=== PATIENT | female | born 1955 | race Caucasian/White ===

== ENCOUNTER → 2020-10-23 08:18 | Outpatient (CLI) | payer MEDICARE, OTHER, SELFPAY ==
--- NOTE | 2020-10-23 08:28 | US_ITS ---
PROCEDURE: US ABDOMEN LIMITED CLINICAL INDICATION: VIRAL HEPATITIS C,CIRRHOSIS,ALTERED BOWEL FUNCTION COMPARISON: No exams were available for comparison FINDINGS: PANCREAS: Unremarkable. No obvious mass or abnormal fluid collection. No ductal dilatation LIVER: No focal liver lesions demonstrated. Homogeneous echogenicity. No intrahepatic biliary ductal dilatation evident. There is appropriate direction of blood flow within a non dilated portal vein RIGHT KIDNEY: Unremarkable. Normal size and echogenicity. No hydronephrosis GALLBLADDER: There is a gallstone present which measures approximately 3 cm. In the upper aspect of the gallbladder there is tumefactive sludge. No gallbladder wall thickening pericholecystic fluid or biliary dilatation is evident. Common bile duct is normal at 3 mm. IMPRESSION: Cholelithiasis with tumefactive sludge in the gallbladder Dictated by: Bladimir Schultz MD 10/23/2020 17:37 Bladimir Schultz MD in [place] 10/23/2020 17:37
[2020-10-23 09:48] LABS: Basophils # 0.1 K/mm3 (0-0.2); Basophils % 1.1 % (0.1-2.0); Eosinophils # 0.2 K/mm3 (0.0-0.4); Eosinophils % 3.8 % (0.1-12.0); Hematocrit 39.4 % (37.0-47.0); Hemoglobin 11.6 g/dL (12.2-16.2); Lymphocytes # 1.9 K/mm3 (0.7-4.5); Lymphocytes % 37.4 % (10-50); Mean Corpuscular HGB Conc 29.5 g/dL (31.8-35.4); Mean Corpuscular Hemoglobin 22.5 pg (27.0-31.2); Mean Platelet Volume 6.8 fl (7.4-10.4); Monocytes # 0.3 K/mm3 (0.1-1.0); Monocytes % 5.1 % (1.7-9.3); Neutrophils # 2.7 K/mm3 (1.8-7.8); Neutrophils % 52.6 % (37.0-80.0); Platelet Count 323 K/mm3 (142-424); Red Blood Count 5.18 M/mm3 (4.20-5.40); Red Cell Distribution Width 14.2 % (11.5-17.5); White Blood Count 5.1 K/mm3 (4.8-10.8)
[2020-10-23 09:58] LABS: Ammonia < 9 umol/L (9-30)
[2020-10-23 10:44] LABS: Chloride 102 mmol/L (98-107); Potassium 3.8 mmoL/L (3.5-5.1); Sodium 139 mmol/L (136-145)
[2020-10-23 10:46] LABS: Alanine Aminotransferase 76 U/L (12-78); Aspartate Amino Transferase 60 U/L (14-36); Blood Urea Nitrogen 15 mg/dl (7-17); Estimated Glomerular Filt Rate 124 ml/min (>60); GFR (African American) 150 ML/MIN (>60)
[2020-10-23 10:47] LABS: Albumin Level 4.2 g/dl (3.5-5.0); Albumin/Globulin Ratio 1.6 (1.1-1.8); Alkaline Phosphatase 40 U/L (38-126); Anion Gap 10.8 mEq/L (5-15); Bilirubin,Total 0.4 mg/dl (0.2-1.3); Calcium 9.7 mg/dl (8.4-10.2); Carbon Dioxide 30 mmol/L (22.0-30.0); Globulin 2.6 g/dL (1.3-3.2); Glucose 161 mg/dl (74-100); Iron 65 ug/dL (37-170); Total Protein,Serum 6.8 g/dl (6.3-8.2)
[2020-10-23 10:57] LABS: Total Iron Binding Capacity 477 ug/dL (265-497)
[2020-10-23 11:07] LABS: INR 1.01 (0.9-1.1); Prothrombin Time 11.2 seconds (9.4-11.8)
[2020-10-23 11:20] LABS: Ferritin 9.36 ng/ml (11.1-264)
[2020-10-24 10:38] LABS: Hep A Ab, IgM Negative (Negative); Hepatitis B Core Antibody IgM Negative (Negative); Hepatitis B Surface Antigen Negative (Negative)
[2020-10-24 22:04] LABS: AFP, Tumor Marker 4.8 ng/mL (0.0-8.3); Hepatitis C Antibody >11.0 s/co ratio (0.0-0.9)
[2020-10-25 08:17] LABS: ALT (SGPT) P5P 78 IU/L (0-40); Alpha 2-Macroglobulins, Qn 385 mg/dL (110-276); Apolipoprotein A-1 161 mg/dL (116-209); Bilirubin, Total 0.2 mg/dL (0.0-1.2); Fibrosis Score 0.43 (0.00-0.21); Fibrosis Stage F1-F2 (.); GGT 30 IU/L (0-60); Haptoglobin 60 mg/dL (37-355); Necroinflammat Activity Grade A1-A2 (.); Necroinflammat Activity Score 0.51 (0.00-0.17)
[2020-10-26 17:29] LABS: Hepatitis C Genotype 1a (.)
== END ==
PROVIDERS: PCP Family Medicine; Visit Provider Nurse Practitioner Family
DX: B19.20 Unspecified viral hepatitis C without hepatic coma (principal); K74.60 Unspecified cirrhosis of liver; R19.4 Change in bowel habit; Z12.11 Encounter for screening for malignant neoplasm of colon
CPT/HCPCS: 36415; 76705; 80053; 80074; 81596; 82105; 82140; 82728; 83540; 83550; 85025; 85610; 87522

== ENCOUNTER → 2020-12-05 17:13 | Outpatient (CLI) | payer MEDICARE, OTHER, SELFPAY ==
[2020-12-05 18:41] LABS: Coronavirus 19 IgG Antibody Negative (Negative); Coronavirus 19 IgM Antibody Negative (Negative)
== END ==
PROVIDERS: Visit Provider Internal Medicine Gastroenterology
DX: Z01.812 Encounter for preprocedural laboratory examination (principal)
CPT/HCPCS: 36415; 86328

== ENCOUNTER 2020-12-07 09:29 | Day surgery (SDC) | payer MEDICARE, OTHER, SELFPAY ==
[2020-11-26 14:19] VITALS: BMI 28.7
[2020-12-07] VITALS (7 sets, daily range): BP systolic 132–189; BP diastolic 58–91; PULSE 57–62; RESP 18; TEMP 36.2–36.6; O2SAT 96–98
[2020-12-07 10:18] LABS: POC Glucose,Bedside 201 (70-110)
--- NOTE | 2020-12-07 10:48 | HMH.ANESCL ---
[facility] Anesthesia Checklist - Structural Data Admitted From: Home Planned Operative Procedure/s: colonoscopy Consent for Planned Operative Procedure(s) Verified: Yes - Airway Assessment C-Spine Mobility Assessed: Yes TMJ Mobility Assessed: Yes Dentition: Poor Dentition - Neurological Assessment Level of Consciousness: Awake, Alert, Appropriate - Anesthesia Plan Anesthesia Risk discussed: Yes Anesthesia Plan: Verified ASA Class: III Anesthesia Type: MAC [facility] History I have reviewed the patient's past medical history: Yes Medical History: Reports:: Diabetes Mellitus Type 2 Denies:: Cancer, Diabetes Mellitus Type 1, Internal Pacemaker, MRSA, Seizures *Have you ever received a pneumonia vaccine?: Yes *Have you received a flu vaccine this season?: Yes Anesthesia experience/problems:: none Laterality Cases: Bilateral: Cataract Other Surgeries: No: Pacemaker Amputation: No Fractures: Yes - *Social History Last grade of school completed: Some college Smoking Status: Never smoker Alcohol Intake: current Alcohol Intake Frequency:: holidays/special occasions only Substance Use Type: denies use *Occupational Status:: employed Housing: house Household Members: none *Travel in the last 8 weeks: None Family Hx:: Unable to obtain
--- NOTE | 2020-12-07 11:04 | P.PCN_ITS ---
[facility] Procedure Note Procedure Note:: Colonoscopy Procedure Report: Colonoscopy Endoscopist: Pan Camara II, MD Referring physician: Eneida Cavazos DO Date of Procedure: December 07, 2020 Equipment: Olympus 180 variable stiffness pediatric colonoscope Sedation: MAC sedation Indication: Mrs. Lee is a 65-year-old female who is here for follow-up screening/surveillance colonoscopy. Her last colonoscopy in 2008 was normal. The patient has noted some change in her bowel habits over the last 3 to 6 months with some diarrhea and urgency that occurs once every 1 to 2 weeks. She does get some bloating and minimal gassiness. She has some occasional right upper quadrant and left upper quadrant discomfort. She reports no weight loss, rectal bleeding or family history of colon cancer. She does have hepatitis C with cirrhosis. She had initially been treated with pegylated interferon and ribavirin but this did result and autoimmune thyroiditis and hypothyroidism. She was seen to discuss newer therapies recently. Procedure: Prior to the procedure, a history and physical exam was performed, and patient's medications and allergies were reviewed. The risks, benefits and alternatives of the sedation and procedure were discussed with the patient. All questions were answered and informed consent was obtained. The patient was brought to the procedure room. Patient identification and proposed procedure were verified by the physician and the nurse. The patient was placed in a left lateral decubitus position and the scope was passed under direct vision. Throughout the procedure, the patient's blood pressure, pulse, and oxygen saturations were monitored continuously. The colonoscopy was accomplished without difficulty. The patient tolerated the procedure well. Findings: On digital rectal examination there was normal rectal tone. There were no external hemorrhoids. The colonoscope was introduced through the anal canal to the rectum and advanced to the cecum. The ileocecal valve and appendiceal orifice were identified. The scope was advanced a short distance into the ileum which appeared grossly normal. The scope was then withdrawn into the colon. The cecum, ascending, transverse, descending, sigmoid and rectum were grossly normal. There were no mucosal abnormalities identified. Upon retroflexion within the rectum there were very small grade 0?1 internal hemorrhoids with some small hypertrophied anal papilla.The preparation was excellent throughout with Jenkinjones Preparation Score of 9. The cecal time was 10 minutes. Impression: 1. Normal colonoscopy with intubation of the terminal ileum Plan: The patient will not require screening/surveillance colonoscopy again for 10 years by ACS guidelines. I would encourage probiotic and bulk fiber supplementation on a long-term daily maintenance basis.
== END 2020-12-07 12:16 | disposition home or self-care (01) ==
LOC: OUTP 09:31
PROVIDERS: PCP Family Medicine; Visit Provider Internal Medicine Gastroenterology
PROC: 0DJD8ZZ Inspection of Lower Intestinal Tract, Via Natural or Artificial Opening Endoscopic (ICD-10-PCS; CPT 45378; principal; 2020-12-07 10:30)
DX: Z12.11 Encounter for screening for malignant neoplasm of colon (principal); B19.20 Unspecified viral hepatitis C without hepatic coma; K74.60 Unspecified cirrhosis of liver; E11.9 Type 2 diabetes mellitus without complications; I10 Essential (primary) hypertension; Z79.82 Long term (current) use of aspirin; Z79.84 Long term (current) use of oral hypoglycemic drugs; Z79.899 Other long term (current) drug therapy
CPT/HCPCS: G0121; 82962

== ENCOUNTER → 2021-03-28 14:09 | Outpatient (CLI) | payer MEDICARE, OTHER, SELFPAY | PROVIDERS: Visit Provider Nurse Practitioner Family | DX: B19.20 Unspecified viral hepatitis C without hepatic coma (principal); K74.60 Unspecified cirrhosis of liver | CPT/HCPCS: 36415; 87522 ==

== ENCOUNTER → 2021-04-19 16:55 | Outpatient (CLI) | payer MEDICARE, OTHER, SELFPAY ==
[2021-04-19 17:29] LABS: Basophils # 0.1 K/mm3 (0-0.2); Eosinophils # 0.3 K/mm3 (0.0-0.4); Eosinophils % 3.3 % (0.1-12.0); Hemoglobin 11.8 g/dL (12.2-16.2)
[2021-04-19 17:50] LABS: Basophils % 0.9 % (0.1-2.0); Hematocrit 37.3 % (37.0-47.0); Lymphocytes # 3.2 K/mm3 (0.7-4.5); Lymphocytes % 40.9 % (10-50); Mean Corpuscular HGB Conc 31.7 g/dL (31.8-35.4); Mean Corpuscular Hemoglobin 22.6 pg (27.0-31.2); Mean Corpuscular Volume 71.3 fl (81-99); Mean Platelet Volume 7.3 fl (7.4-10.4); Monocytes # 0.4 K/mm3 (0.1-1.0); Neutrophils # 3.9 K/mm3 (1.8-7.8); Neutrophils % 49.9 % (37.0-80.0); Platelet Count 301 K/mm3 (142-424); Red Blood Count 5.22 M/mm3 (4.20-5.40); Red Cell Distribution Width 14.6 % (11.5-17.5); White Blood Count 7.7 K/mm3 (4.8-10.8)
[2021-04-19 18:21] LABS: Chloride 99 mmol/L (98-107)
[2021-04-19 18:22] LABS: Potassium 3.9 mmoL/L (3.5-5.1); Sodium 136 mmol/L (136-145)
[2021-04-19 18:24] LABS: Alanine Aminotransferase 76 U/L (12-78); Alkaline Phosphatase 49 U/L (38-126); Anion Gap 13.9 mEq/L (5-15); Aspartate Amino Transferase 62 U/L (14-36); Bilirubin,Total 0.4 mg/dl (0.2-1.3); Blood Urea Nitrogen 25 mg/dl (7-17); Carbon Dioxide 27 mmol/L (22.0-30.0); Estimated Glomerular Filt Rate 124 ml/min (>60); GFR (African American) 150 ML/MIN (>60)
[2021-04-19 18:25] LABS: Albumin Level 4.4 g/dl (3.5-5.0); Albumin/Globulin Ratio 1.8 (1.1-1.8); Calcium 9.6 mg/dl (8.4-10.2); Globulin 2.5 g/dL (1.3-3.2); Glucose 103 mg/dl (74-100); Total Protein,Serum 6.9 g/dl (6.3-8.2)
== END ==
PROVIDERS: Visit Provider Nurse Practitioner Family
DX: B19.20 Unspecified viral hepatitis C without hepatic coma (principal); K74.60 Unspecified cirrhosis of liver
CPT/HCPCS: 36415; 80053; 85025

== ENCOUNTER → 2021-05-11 10:23 | Outpatient (CLI) | payer MEDICARE, OTHER, SELFPAY ==
[2021-05-11 10:58] LABS: Basophils # 0.1 K/mm3 (0-0.2); Basophils % 1.1 % (0.1-2.0); Eosinophils # 0.3 K/mm3 (0.0-0.4); Hematocrit 38.4 % (37.0-47.0); Hemoglobin 12.4 g/dL (12.2-16.2); Lymphocytes # 2.5 K/mm3 (0.7-4.5); Mean Corpuscular HGB Conc 32.4 g/dL (31.8-35.4); Mean Corpuscular Hemoglobin 23.1 pg (27.0-31.2); Mean Corpuscular Volume 71.3 fl (81-99); Mean Platelet Volume 7.3 fl (7.4-10.4); Monocytes # 0.4 K/mm3 (0.1-1.0); Neutrophils # 4.7 K/mm3 (1.8-7.8); Platelet Count 317 K/mm3 (142-424); Red Blood Count 5.39 M/mm3 (4.20-5.40); Red Cell Distribution Width 14.4 % (11.5-17.5); White Blood Count 7.9 K/mm3 (4.8-10.8)
[2021-05-11 11:49] LABS: Chloride 101 mmol/L (98-107)
[2021-05-11 11:50] LABS: Sodium 136 mmol/L (136-145)
[2021-05-11 11:52] LABS: Alanine Aminotransferase 29 U/L (12-78); Alkaline Phosphatase 48 U/L (38-126); Aspartate Amino Transferase 31 U/L (14-36); Bilirubin,Total 0.4 mg/dl (0.2-1.3); Blood Urea Nitrogen 23 mg/dl (7-17); Carbon Dioxide 21 mmol/L (22.0-30.0); Estimated Glomerular Filt Rate 124 ml/min (>60); GFR (African American) 150 ML/MIN (>60)
[2021-05-11 11:53] LABS: Albumin Level 4.6 g/dl (3.5-5.0); Albumin/Globulin Ratio 1.8 (1.1-1.8); Calcium 9.3 mg/dl (8.4-10.2); Globulin 2.5 g/dL (1.3-3.2); Glucose 188 mg/dl (74-100); Total Protein,Serum 7.1 g/dl (6.3-8.2)
[2021-05-12 09:43] LABS: Hepatitis C Antibody >11.0 s/co ratio (0.0-0.9)
== END ==
PROVIDERS: Visit Provider Nurse Practitioner Family
DX: B19.20 Unspecified viral hepatitis C without hepatic coma (principal)
CPT/HCPCS: 80053; 85025; 87380; 87522

== ENCOUNTER → 2021-06-15 09:28 | Outpatient (CLI) | payer MEDICARE, OTHER, SELFPAY ==
[2021-06-15 10:31] LABS: Basophils # 0.1 K/mm3 (0-0.2); Basophils % 0.9 % (0.1-2.0); Eosinophils # 0.2 K/mm3 (0.0-0.4); Eosinophils % 3.4 % (0.1-12.0); Hematocrit 38.1 % (37.0-47.0); Hemoglobin 12.2 g/dL (12.2-16.2); Lymphocytes # 2.4 K/mm3 (0.7-4.5); Lymphocytes % 39.5 % (10-50); Mean Corpuscular HGB Conc 32.1 g/dL (31.8-35.4); Mean Corpuscular Hemoglobin 23.1 pg (27.0-31.2); Mean Corpuscular Volume 72.1 fl (81-99); Mean Platelet Volume 7.4 fl (7.4-10.4); Monocytes # 0.3 K/mm3 (0.1-1.0); Monocytes % 5.2 % (1.7-9.3); Neutrophils # 3.1 K/mm3 (1.8-7.8); Platelet Count 317 K/mm3 (142-424); Red Blood Count 5.29 M/mm3 (4.20-5.40); Red Cell Distribution Width 14.7 % (11.5-17.5)
[2021-06-15 11:26] LABS: Alanine Aminotransferase 27 U/L (12-78); Albumin Level 4.3 g/dl (3.5-5.0); Albumin/Globulin Ratio 1.7 (1.1-1.8); Alkaline Phosphatase 44 U/L (38-126); Anion Gap 13.2 mEq/L (5-15); Aspartate Amino Transferase 29 U/L (14-36); Bilirubin,Total 0.4 mg/dl (0.2-1.3); Blood Urea Nitrogen 21 mg/dl (7-17); Calcium 9.2 mg/dl (8.4-10.2); Carbon Dioxide 28 mmol/L (22.0-30.0); Chloride 101 mmol/L (98-107); Estimated Glomerular Filt Rate 124 ml/min (>60); GFR (African American) 150 ML/MIN (>60); Globulin 2.5 g/dL (1.3-3.2); Glucose 155 mg/dl (74-100); Potassium 4.2 mmoL/L (3.5-5.1); Sodium 138 mmol/L (136-145); Total Protein,Serum 6.8 g/dl (6.3-8.2)
== END ==
PROVIDERS: Visit Provider Nurse Practitioner Family
DX: B18.2 Chronic viral hepatitis C (principal); Z79.899 Other long term (current) drug therapy
CPT/HCPCS: 36415; 80053; 85025; 87522

== ENCOUNTER → 2021-09-14 08:38 | Outpatient (CLI) | payer MEDICARE, OTHER, SELFPAY ==
[2021-09-14 09:05] LABS: Basophils # 0.1 K/mm3 (0-0.2); Basophils % 1.5 % (0.1-2.0); Eosinophils # 0.2 K/mm3 (0.0-0.4); Eosinophils % 4.1 % (0.1-12.0); Hematocrit 40.3 % (37.0-47.0); Hemoglobin 12.3 g/dL (12.2-16.2); Lymphocytes % 35.7 % (10-50); Mean Corpuscular HGB Conc 30.6 g/dL (31.8-35.4); Mean Corpuscular Hemoglobin 23.8 pg (27.0-31.2); Mean Corpuscular Volume 77.5 fl (81-99); Monocytes # 0.3 K/mm3 (0.1-1.0); Monocytes % 6.1 % (1.7-9.3); Neutrophils # 2.9 K/mm3 (1.8-7.8); Neutrophils % 52.7 % (37.0-80.0); Platelet Count 382 K/mm3 (142-424); Red Blood Count 5.19 M/mm3 (4.20-5.40); Red Cell Distribution Width 14.8 % (11.5-17.5); White Blood Count 5.5 K/mm3 (4.8-10.8)
[2021-09-14 11:29] LABS: Alanine Aminotransferase 24 U/L (12-78); Albumin Level 4.2 g/dl (3.5-5.0); Albumin/Globulin Ratio 1.5 (1.1-1.8); Alkaline Phosphatase 40 U/L (38-126); Anion Gap 13.2 mEq/L (5-15); Aspartate Amino Transferase 34 U/L (14-36); Bilirubin,Total 0.2 mg/dl (0.2-1.3); Blood Urea Nitrogen 19 mg/dl (7-17); Calcium 9.2 mg/dl (8.4-10.2); Carbon Dioxide 27 mmol/L (22.0-30.0); Chloride 102 mmol/L (98-107); Estimated Glomerular Filt Rate 123 ml/min (>60); GFR (African American) 149 ML/MIN (>60); Globulin 2.8 g/dL (1.3-3.2); Glucose 183 mg/dl (74-100); Potassium 4.2 mmoL/L (3.5-5.1); Sodium 138 mmol/L (136-145)
== END ==
PROVIDERS: Visit Provider Nurse Practitioner Family
DX: B18.2 Chronic viral hepatitis C (principal); Z79.899 Other long term (current) drug therapy
CPT/HCPCS: 36415; 80053; 85025; 87522

== ENCOUNTER → 2021-09-26 08:21 | Outpatient (CLI) | payer MEDICARE, OTHER, SELFPAY | PROVIDERS: Visit Provider Nurse Practitioner Family | DX: B18.2 Chronic viral hepatitis C (principal); K74.60 Unspecified cirrhosis of liver | CPT/HCPCS: 36415; 87522 ==

== ENCOUNTER → 2021-12-11 09:21 | Outpatient (CLI) | payer MEDICARE, OTHER, SELFPAY | PROVIDERS: Visit Provider Nurse Practitioner | DX: Z20.822 Contact with and (suspected) exposure to COVID-19 (principal) | CPT/HCPCS: C9803; U0003; U0005 ==

== ENCOUNTER → 2022-01-17 15:39 | Outpatient (CLI) | payer MEDICARE, OTHER, SELFPAY ==
--- NOTE | 2022-01-17 15:44 | MM_ITS ---
PROCEDURE INFORMATION: Exam: MG Bilateral Screening 3D Mammography Exam date and time: 01/17/2022 3:44 PM Age: 66 years old Clinical indication: Encounter for screening mammogram for malignant neoplasm of breast; Additional info: Annual screening TECHNIQUE: Imaging protocol: Bilateral Screening tomosynthesis and 2D mammography including computer-aided detection (CAD) when performed. COMPARISON: 1. MG DMSB DIG MAMM-SCREEN DAVDI 08/03/2015 10:38 AM 2. MG DMSB DIGITAL MAMM-SCREEN BILATERAL 01/07/2011 8:45 AM 3. MG Prior Reports 03/01/2009 9:30 AM FINDINGS: MAMMOGRAPHY: Breast composition: There are scattered areas of fibroglandular density. Mass: No suspicious masses. Architectural distortion: No suspicious distortion. Calcifications: No suspicious calcifications. Asymmetric density: None. Skin thickening: None. Axillary adenopathy: None. IMPRESSION: No mammographic evidence of malignancy. Annual screening is recommended unless otherwise clinically indicated. ASSESSMENT: BI-RADS Category 1: Negative
== END ==
PROVIDERS: PCP Family Medicine; Visit Provider Family Medicine
DX: Z12.31 Encounter for screening mammogram for malignant neoplasm of breast (principal)
CPT/HCPCS: 77063; 77067

== ENCOUNTER → 2022-03-05 07:53 | Outpatient (CLI) | payer MEDICARE, OTHER, SELFPAY ==
--- NOTE | 2022-03-05 07:57 | US_ITS ---
FINAL REPORT CLINICAL HISTORY: HEP C,CIRRHOSIS COMPARISON: October 23, 2020 FINDINGS: Sonographic images of the right upper quadrant were obtained. The pancreas is partially obscured.The liver has an unremarkable appearance. There is a large stone in the gallbladder. There is soft tissue within the gallbladder favored to represent a large amount of sludge. There is no evidence of biliary ductal dilatation.The common duct measures 4mm. Limited images of the right kidney are unremarkable. IMPRESSION: Gallstone and a large amount of sludge within the gallbladder. Reviewed, Interpreted and Dictated by Abrahan Kenney III, MD Transcribed by Solis Dhaliwal Authenticated by Abrahan Kenney III, MD on 03/05/2022 10:15:09 AM [facility]
[2022-03-05 08:54] LABS: Ammonia < 9 umol/L (9-30)
[2022-03-05 09:05] LABS: Basophils # 0.1 K/mm3 (0-0.2); Basophils % 0.9 % (0.1-2.0); Eosinophils # 0.1 K/mm3 (0.0-0.4); Eosinophils % 2.6 % (0.1-12.0); Hematocrit 36.4 % (37.0-47.0); Hemoglobin 11.4 g/dL (12.2-16.2); Lymphocytes % 19.3 % (10-50); Mean Corpuscular HGB Conc 31.4 g/dL (31.8-35.4); Mean Corpuscular Hemoglobin 23.6 pg (27.0-31.2); Mean Corpuscular Volume 75.4 fl (81-99); Mean Platelet Volume 7.6 fl (7.4-10.4); Monocytes # 0.3 K/mm3 (0.1-1.0); Monocytes % 6.3 % (1.7-9.3); Neutrophils # 3.8 K/mm3 (1.8-7.8); Neutrophils % 70.9 % (37.0-80.0); Platelet Count 304 K/mm3 (142-424); Red Blood Count 4.83 M/mm3 (4.20-5.40); Red Cell Distribution Width 15.6 % (11.5-17.5); White Blood Count 5.3 K/mm3 (4.8-10.8)
[2022-03-05 09:11] LABS: INR 1.04 (0.9-1.1); Prothrombin Time 11.7 seconds (10.1-12.5)
[2022-03-05 09:17] LABS: Chloride 102 mmol/L (98-107); Potassium 3.6 mmoL/L (3.5-5.1); Sodium 139 mmol/L (136-145)
[2022-03-05 09:20] LABS: Alanine Aminotransferase 29 U/L (12-78); Albumin Level 4.1 g/dl (3.5-5.0); Albumin/Globulin Ratio 1.6 (1.1-1.8); Alkaline Phosphatase 46 U/L (38-126); Anion Gap 11.6 mEq/L (5-15); Aspartate Amino Transferase 34 U/L (14-36); Bilirubin,Total 0.4 mg/dl (0.2-1.3); Blood Urea Nitrogen 18 mg/dl (7-17); Calcium 8.2 mg/dl (8.4-10.2); Carbon Dioxide 29 mmol/L (22.0-30.0); Estimated Glomerular Filt Rate 123 ml/min (>60); GFR (African American) 149 ML/MIN (>60); Globulin 2.5 g/dL (1.3-3.2); Glucose 143 mg/dl (74-100); Iron 61 ug/dL (37-170); Total Protein,Serum 6.6 g/dl (6.3-8.2)
[2022-03-05 13:46] LABS: Total Iron Binding Capacity 448 ug/dL (265-497)
[2022-03-05 14:12] LABS: Ferritin 6.86 ng/ml (11.1-264)
[2022-03-06 18:10] LABS: AFP, Tumor Marker 2.3 ng/mL (0.0-9.2)
== END ==
PROVIDERS: PCP Family Medicine; Visit Provider Nurse Practitioner Family
DX: B18.2 Chronic viral hepatitis C (principal); K74.60 Unspecified cirrhosis of liver
CPT/HCPCS: 36415; 76705; 80053; 82105; 82140; 82728; 83540; 83550; 85025; 85610; 87522

== ENCOUNTER → 2022-04-01 10:55 | Outpatient (CLI) | payer MEDICARE, OTHER, SELFPAY | PROVIDERS: Visit Provider Nurse Practitioner Family | DX: Z01.812 Encounter for preprocedural laboratory examination (principal); Z11.52 Encounter for screening for COVID-19 | CPT/HCPCS: C9803; U0003; U0005 ==

== ENCOUNTER → 2022-09-16 07:51 | Outpatient (CLI) | payer MEDICARE, OTHER, SELFPAY ==
--- NOTE | 2022-09-16 07:57 | US_ITS ---
FINAL REPORT CLINICAL HISTORY: CHRONIC HEPATITIS, CIRRHOSIS COMPARISON: 03/05/2022 FINDINGS: Sonographic images of the right upper quadrant were obtained. The pancreas is partially obscured. The liver is somewhat heterogeneous of uncertain significance but could represent areas fatty infiltration. The portal and hepatic veins have normal directional flow. There is sludge and a large gallstone within the gallbladder, stable. There is no evidence of biliary ductal dilatation.The common duct measures 6 mm which is within normal limits for age. Limited images of the right kidney are unremarkable. IMPRESSION: Large gallstone with sludge within the gallbladder, stable. Somewhat heterogeneous liver of uncertain significance, could represent areas of fatty infiltration. Reviewed, Interpreted and Dictated by Abrahan Kenney III, MD Transcribed by Shaista Hughes Authenticated and [facility]
[2022-09-16 09:54] LABS: Eosinophils # 0.1 K/mm3 (0.0-0.4); Eosinophils % 2.3 % (0.1-12.0); Hematocrit 37.3 % (37.0-47.0); Hemoglobin 11.7 g/dL (12.2-16.2); Lymphocytes % 23.5 % (10-50); Mean Corpuscular HGB Conc 31.3 g/dL (31.8-35.4); Mean Corpuscular Hemoglobin 23.6 pg (27.0-31.2); Mean Corpuscular Volume 75.4 fl (81-99); Mean Platelet Volume 7.7 fl (7.4-10.4); Monocytes # 0.3 K/mm3 (0.1-1.0); Monocytes % 5.9 % (1.7-9.3); Neutrophils # 2.9 K/mm3 (1.8-7.8); Neutrophils % 67.2 % (37.0-80.0); Platelet Count 368 K/mm3 (142-424); Red Blood Count 4.95 M/mm3 (4.20-5.40); Red Cell Distribution Width 15.3 % (11.5-17.5); White Blood Count 4.2 K/mm3 (4.8-10.8)
[2022-09-16 10:02] LABS: Prothrombin Time 11.8 seconds (10.1-12.5)
[2022-09-16 10:03] LABS: Ammonia < 9 umol/L (9-30)
[2022-09-16 11:27] LABS: Chloride 103 mmol/L (98-107)
[2022-09-16 11:28] LABS: Potassium 4.4 mmoL/L (3.5-5.1); Sodium 139 mmol/L (136-145)
[2022-09-16 11:30] LABS: Alanine Aminotransferase 22 U/L (12-78); Albumin Level 4.3 g/dl (3.5-5.0); Albumin/Globulin Ratio 1.7 (1.1-1.8); Alkaline Phosphatase 54 U/L (38-126); Anion Gap 12.4 mEq/L (5-15); Aspartate Amino Transferase 41 U/L (14-36); Bilirubin,Total 0.4 mg/dl (0.2-1.3); Blood Urea Nitrogen 16 mg/dl (7-17); Carbon Dioxide 28 mmol/L (22.0-30.0); Estimated Glomerular Filt Rate 123 ml/min (>60); GFR (African American) 149 ML/MIN (>60); Globulin 2.5 g/dL (1.3-3.2); Glucose 146 mg/dl (74-100); Iron 95 ug/dL (37-170); Total Protein,Serum 6.8 g/dl (6.3-8.2)
[2022-09-16 11:39] LABS: Total Iron Binding Capacity 440 ug/dL (265-497)
[2022-09-16 12:06] LABS: Ferritin 7.32 ng/ml (11.1-264)
[2022-09-16 17:19] LABS: Calcium 8.6 mg/dl (8.4-10.2)
[2022-09-17 08:16] LABS: AFP, Tumor Marker 2.4 ng/mL (0.0-9.2)
== END ==
PROVIDERS: PCP Family Medicine; Visit Provider Nurse Practitioner Family
DX: B18.2 Chronic viral hepatitis C (principal); K74.69 Other cirrhosis of liver; D50.8 Other iron deficiency anemias; R15.2 Fecal urgency; R14.0 Abdominal distension (gaseous)
CPT/HCPCS: 36415; 76705; 80053; 82105; 82140; 82728; 83540; 83550; 85025; 85610

== ENCOUNTER → 2022-09-30 08:54 | Outpatient (CLI) | payer MEDICARE, OTHER, SELFPAY ==
[2022-09-30 09:07] LABS: Adenovirus F 40/41, stool Not Detected (NotDetected); Astrovirus Not Detected (NotDetected); Campylobacter Not Detected (NotDetected); Clostridium Difficile A/B, PCR Not Detected (NotDetected); Cryptosporidium Not Detected (NotDetected); Cyclospora Cayetanesis Not Detected (NotDetected); Entamoeba histolytica Not Detected (NotDetected); Enteroaggregative E coli Not Detected (NotDetected); Enteropathogenic E coli Not Detected (NotDetected); Enterotoxigenic E coli Not Detected (NotDetected); Giardia lamblia Not Detected (NotDetected); Norovirus Not Detected (NotDetected); Plesimonas Shigalloides, PCR Not Detected (NotDetected); Rotavirus A Not Detected (NotDetected); Salmonella, PCR Not Detected (NotDetected); Sapovirus Not Detected (NotDetected); Shiga-like toxin E coli Not Detected (NotDetected); Shigella Enterovasive E coli Not Detected (NotDetected); Vibrio Cholerae Not Detected (NotDetected); Vibrio, PCR Not Detected (NotDetected); Yersinia Entercolitica, PCR Not Detected (NotDetected)
== END ==
PROVIDERS: PCP Family Medicine; Visit Provider Nurse Practitioner Family
DX: R19.7 Diarrhea, unspecified (principal); R15.2 Fecal urgency; K74.69 Other cirrhosis of liver; B18.2 Chronic viral hepatitis C
CPT/HCPCS: 87506

== ENCOUNTER → 2023-02-17 10:46 | Outpatient (CLI) | payer MEDICARE, OTHER, SELFPAY ==
--- NOTE | 2023-02-17 10:50 | MM_ITS ---
PROCEDURE INFORMATION: Exam: MG Bilateral Screening 3D Mammography Exam date and time: 02/17/2023 10:39 AM Age: 67 years old Clinical indication: Screening examination TECHNIQUE: Imaging protocol: Bilateral Screening tomosynthesis and 2D mammography including computer-aided detection (CAD) when performed. COMPARISON: 1. MG MM DIG SCREENING MAMM BI W/CAD 01/17/2022 3:42 PM 2. MG DMSB DIG MAMM-SCREEN DAVID 08/03/2015 10:38 AM 3. MG DMSB DIGITAL MAMM-SCREEN BILATERAL 01/07/2011 8:45 AM FINDINGS: MAMMOGRAPHY: Breast composition: The breasts are almost entirely fatty. Mass: No suspicious masses. Architectural distortion: No suspicious distortion. Calcifications: No suspicious calcifications. Asymmetric density: None. Skin thickening: None. Axillary adenopathy: None. IMPRESSION: No mammographic evidence of malignancy. Annual screening is recommended unless otherwise clinically indicated. ASSESSMENT: BI-RADS Category 1: Negative
== END ==
PROVIDERS: PCP Family Medicine; Visit Provider Family Medicine
DX: Z12.31 Encounter for screening mammogram for malignant neoplasm of breast (principal)
CPT/HCPCS: 77063; 77067

== ENCOUNTER → 2023-03-10 07:46 | Outpatient (CLI) | payer MEDICARE, OTHER, SELFPAY ==
--- NOTE | 2023-03-10 07:51 | US_ITS ---
FINAL REPORT CLINICAL HISTORY: CHRONIC HEPATITIS,CIRRHOSIS,DIARRHEA,FECAL URGENCY COMPARISON: 09/16/2022 FINDINGS: Sonographic images of the right upper quadrant were obtained. The pancreas is partially obscured. There are multiple hypoechoic hepatic masses measuring up to 2.4 cm most worrisome for hepatic metastatic disease. There is a large gallstone in the gallbladder with presumed sludge or possible mass. There is no evidence of biliary ductal dilatation.The common duct measures 5 mm. Limited images of the right kidney are unremarkable. IMPRESSION: Hepatic masses most worrisome for hepatic metastatic disease. This could be further evaluated with CT with contrast. Large gallstone in the gallbladder with presumed sludge or possible mass. Reviewed, Interpreted and Dictated by Abrahan Kenney III, MD Transcribed by Kaitlyn Stephen Authenticated and [facility]
[2023-03-10 09:41] LABS: Basophils # 0.1 K/mm3 (0-0.2); Basophils % 0.8 % (0.1-2.0); Eosinophils # 0.2 K/mm3 (0.0-0.4); Eosinophils % 3.9 % (0.1-12.0); Hematocrit 39.6 % (37.0-47.0); Hemoglobin 12.2 g/dL (12.2-16.2); Lymphocytes # 1.2 K/mm3 (0.7-4.5); Lymphocytes % 20.3 % (10-50); Mean Corpuscular HGB Conc 30.8 g/dL (31.8-35.4); Mean Corpuscular Hemoglobin 22.4 pg (27.0-31.2); Mean Corpuscular Volume 72.7 fl (81-99); Mean Platelet Volume 7.2 fl (7.4-10.4); Monocytes # 0.4 K/mm3 (0.1-1.0); Monocytes % 7.1 % (1.7-9.3); Neutrophils # 3.9 K/mm3 (1.8-7.8); Neutrophils % 67.9 % (37.0-80.0); Platelet Count 387 K/mm3 (142-424); Red Blood Count 5.46 M/mm3 (4.20-5.40); Red Cell Distribution Width 14.6 % (11.5-17.5); White Blood Count 5.7 K/mm3 (4.8-10.8)
[2023-03-10 09:54] LABS: Ammonia < 9 umol/L (9-30)
[2023-03-10 10:33] LABS: INR 1.09 (0.9-1.1); Prothrombin Time 11.7 seconds (10.1-12.5)
[2023-03-10 10:54] LABS: Chloride 100 mmol/L (98-107); Potassium 4.7 mmoL/L (3.5-5.1); Sodium 140 mmol/L (136-145)
[2023-03-10 10:57] LABS: Alanine Aminotransferase 25 U/L (12-78); Albumin Level 4.3 g/dl (3.5-5.0); Albumin/Globulin Ratio 1.3 (1.1-1.8); Alkaline Phosphatase 65 U/L (38-126); Anion Gap 13.7 mEq/L (5-15); Aspartate Amino Transferase 43 U/L (14-36); Bilirubin,Total 0.4 mg/dl (0.2-1.3); Blood Urea Nitrogen 19 mg/dl (7-17); Calcium 9.4 mg/dl (8.4-10.2); Carbon Dioxide 31 mmol/L (22.0-30.0); Estimated Glomerular Filt Rate 100 ml/min (>60); GFR (African American) 121 ML/MIN (>60); Globulin 3.2 g/dL (1.3-3.2); Glucose 102 mg/dl (74-100); Iron 88 ug/dL (37-170); Total Protein,Serum 7.5 g/dl (6.3-8.2)
[2023-03-10 11:06] LABS: Total Iron Binding Capacity 397 ug/dL (265-497)
[2023-03-10 11:30] LABS: Ferritin 9.32 ng/ml (11.1-264)
[2023-03-11 12:59] LABS: AFP, Tumor Marker 2.8 ng/mL (0.0-9.2)
== END ==
PROVIDERS: PCP Family Medicine; Visit Provider Nurse Practitioner Family
DX: B18.2 Chronic viral hepatitis C (principal); K74.60 Unspecified cirrhosis of liver; R15.2 Fecal urgency; R19.7 Diarrhea, unspecified; D50.9 Iron deficiency anemia, unspecified
CPT/HCPCS: 36415; 76705; 80053; 82105; 82140; 82728; 83540; 83550; 85025; 85610

== ENCOUNTER → 2023-03-25 14:20 | Outpatient (CLI) | payer MEDICARE, OTHER, SELFPAY ==
--- NOTE | 2023-03-25 14:34 | CT_ITS ---
PROCEDURE INFORMATION: Exam: CT Abdomen And Pelvis With Contrast Exam date and time: 03/25/2023 4:40 PM Age: 67 years old Clinical indication: Abdominal pain; Additional info: Epigastric pain, nausea, anorexia/loss of appetite TECHNIQUE: Imaging protocol: Computed tomography of the abdomen and pelvis with contrast. Radiation optimization: All CT scans at this facility use at least one of these dose optimization techniques: automated exposure control; mA and/or kV adjustment per patient size (includes targeted exams where dose is matched to clinical indication); or iterative reconstruction. Contrast material: ISOVUE; Contrast volume: 75 ml; Contrast route: IV; REPORTING DATA: Count of CT and Cardiac NM exams in prior 12 months: This patient has received 0 known CTs and 0 known cardiac nuclear medicine studies in the 12 months prior to the current study. COMPARISON: US ABDOMEN LIMITED 03/10/2023 7:58 AM FINDINGS: Liver: Innumerable small lesions throughout the liver metastatic disease until proven otherwise. Largest is peripherally in the posterior segment of the right lobe measuring 2.3 cm. Gallbladder and bile ducts: Distended gallbladder with large stone. No secondary evidence of cholecystitis. Pancreas: Normal. No ductal dilation. Spleen: Normal. No splenomegaly. Adrenal glands: Normal. No mass. Kidneys and ureters: Normal. No hydronephrosis. Stomach and bowel: Unremarkable. No obstruction. No mucosal thickening. Appendix: Normal appendix. Intraperitoneal space: Unremarkable. No free air. No significant fluid collection. Vasculature: Dense atherosclerosis without aneurysm. Lymph nodes: Borderline portacaval, mesenteric and retroperitoneal lymphadenopathy. Urinary bladder: Unremarkable as visualized. Reproductive: Unremarkable as visualized. Bones/joints: Unremarkable. No acute fracture. Soft tissues: Unremarkable. IMPRESSION: 1. Innumerable small lesions throughout the liver, metastatic disease until proven otherwise. Largest is peripherally in the posterior segment of the right lobe measuring 2.3 cm. 2. Borderline portacaval, mesenteric and retroperitoneal lymphadenopathy. 3. Distended gallbladder with large stone. No secondary evidence of cholecystitis.
[2023-03-25 15:19] LABS: Basophils % 0.4 % (0.1-2.0); Eosinophils # 0.1 K/mm3 (0.0-0.4); Eosinophils % 0.7 % (0.1-12.0); Hematocrit 38.2 % (37.0-47.0); Hemoglobin 11.9 g/dL (12.2-16.2); Lymphocytes # 0.7 K/mm3 (0.7-4.5); Lymphocytes % 8.9 % (10-50); Mean Corpuscular HGB Conc 31.2 g/dL (31.8-35.4); Mean Corpuscular Hemoglobin 22.6 pg (27.0-31.2); Mean Corpuscular Volume 72.3 fl (81-99); Mean Platelet Volume 8.1 fl (7.4-10.4); Monocytes # 0.3 K/mm3 (0.1-1.0); Monocytes % 3.6 % (1.7-9.3); Neutrophils # 6.5 K/mm3 (1.8-7.8); Neutrophils % 86.5 % (37.0-80.0); Platelet Count 432 K/mm3 (142-424); Red Blood Count 5.29 M/mm3 (4.20-5.40); Red Cell Distribution Width 14.9 % (11.5-17.5); White Blood Count 7.5 K/mm3 (4.8-10.8)
[2023-03-25 15:24] LABS: MANUAL DIFFERENTIAL MANUAL DIFFERENTIAL (MANUAL DIFF)
[2023-03-25 15:30] LABS: Chloride 95 mmol/L (98-107); Potassium 3.4 mmoL/L (3.5-5.1); Sodium 134 mmol/L (136-145)
[2023-03-25 15:33] LABS: Alanine Aminotransferase 154 U/L (12-78); Alkaline Phosphatase 272 U/L (38-126); Amylase 68 U/L (30-110); Anion Gap 15.4 mEq/L (5-15); Aspartate Amino Transferase 93 U/L (14-36); Bilirubin,Total 1.2 mg/dl (0.2-1.3); Blood Urea Nitrogen 17 mg/dl (7-17); Calcium 9.5 mg/dl (8.4-10.2); Carbon Dioxide 27 mmol/L (22.0-30.0); Estimated Glomerular Filt Rate 123 ml/min (>60); GFR (African American) 149 ML/MIN (>60); Glucose 359 mg/dl (74-100)
[2023-03-25 15:34] LABS: Albumin Level 4.3 g/dl (3.5-5.0); Albumin/Globulin Ratio 1.1 (1.1-1.8); Globulin 3.9 g/dL (1.3-3.2); Lipase 48 U/L (23-300); Total Protein,Serum 8.2 g/dl (6.3-8.2)
[2023-03-25 15:51] LABS: Hypochromasia 2+; Lymphocytes % 11 % (10-50); Monocytes % 3 % (2-9); Neutrophils % 86 % (42-76); Platelet Estimate Normal; Stomatocytes 1+; Total Cells Counted 100
== END ==
PROVIDERS: PCP Family Medicine; Visit Provider Nurse Practitioner Family
DX: R10.13 Epigastric pain (principal); R11.0 Nausea; R63.0 Anorexia
CPT/HCPCS: 36415; 74177; 80053; 82150; 83690; 85007; 85025; Q9967

== ENCOUNTER 2023-05-30 14:23 | Emergency (ER) | payer MEDICARE, OTHER, SELFPAY ==
[2023-05-30 14:24] VITALS: BP 140/83; PULSE 100; RESP 17; TEMP 37.1; O2SAT 97; BMI 27.1
--- NOTE | 2023-05-30 14:35 | HMH.EDABDPAI ---
Discharge Plan Disposition Patient Disposition: Home, Self-Care Condition: Fair Prescriptions Prescriptions: New hydrocodone-acetaminophen 5-325 mg tablet 1 tab PO Q8H PRN (Reason: pain) Qty: 20 0RF No Action glipizide 10 MG tablet 10 mg PO BID aspirin 81 MG tablet,delayed release (DR/EC) 81 mg PO DAILY levothyroxine 100 MCG tablet 100 mcg PO DAILY amlodipine 10 MG tablet 10 mg PO DAILY ferrous sulfate 325 MG tablet 325 mg PO DAILY metformin 1,000 MG tablet 1,000 mg PO BID benazepril 40 MG tablet 40 mg PO DAILY hydrochlorothiazide 12.5 MG tablet 12.5 mg PO DAILY Referrals Follow up/Referrals: Eneida Cavazos [Primary Care Provider] - See instructions Activity Restrictions/Add. Instructions Additional Instructions/Restrictions: Please keep all follow-up appointments as scheduled. Return to the emergency department immediately if you feel worse in any way. Your work-up in the emergency department today showed abnormal liver function tests as well as a low sodium and a low potassium. Please follow-up with your primary care doctor in approximately 3 to 4 days to have your sodium and potassium checked again. Meanwhile, I recommend that you eat 1 banana and drink 1 glass of orange juice a day. Clinical Impressions Clinical Impression: Abdominal pain Qualifiers: Abdominal location: upper abdomen, unspecified Qualified Code(s): R10.10 - Upper abdominal pain, unspecified Instructions Patient Instructions: DI for Acute Abdominal Pain Discharge ED Provider: Alexandra Ashley Abdominal Pain HPI General Chief Complaint: Abdominal Pain Stated Complaint: abd pain Time Seen by Provider: 05/30/23 14:25 Mode of Arrival: Family Vehicle Source of Information: Patient Limitations: No Limitations History of Present Illness HPI narrative: The patient presents to the emergency department complaining of progressively worsening upper abdominal pain for the last few months. She has been diagnosed with cancer. It seems to be metastatic. However, there is uncertainty about the primary cancer. There is suspicion that it may be metastatic colon cancer. The patient denies any vomiting or fevers. She also denies any bloody stools or diarrhea. She is diabetic, hypothyroid, and hypertensive. Related Data Home Medications Medication Instructions Recorded Confirmed amlodipine 10 mg tablet 10 mg PO DAILY High blood pressure 11/26/20 12/07/20 aspirin 81 mg tablet,delayed 81 mg PO DAILY heart health 11/26/20 11/26/20 release benazepril 40 mg tablet 40 mg PO DAILY High blood pressure 11/26/20 12/07/20 ferrous sulfate 325 mg (65 mg 325 mg PO DAILY Supplement 11/26/20 11/26/20 iron) tablet glipizide 10 mg tablet 10 mg PO BID Diabetes 11/26/20 12/07/20 hydrochlorothiazide 12.5 mg tablet 12.5 mg PO DAILY High blood 11/26/20 11/26/20 pressure levothyroxine 100 mcg tablet 100 mcg PO DAILY hormone 11/26/20 11/26/20 replacement metformin 1,000 mg tablet 1,000 mg PO BID Diabetes 11/26/20 12/07/20 Previous Rx's Medication Instructions Recorded hydrocodone 5 mg-acetaminophen 325 1 tab PO Q8H PRN pain #20 tabs 05/30/23 mg tablet Allergies Allergy/AdvReac Type Severity Reaction Status Date / Time No Known Allergies Allergy Verified 11/26/20 14:15 [facility] Disclaimer: The information contained in this section may have been updated after the patient was seen, as this information can be updated by other users. Medical History (Updated 05/30/23 @ 15:51 by Alexandra Ashley MD) Anxiety and depression Cancer Diabetes Hypertension Hyperthyroidism Family History (Updated 05/30/23 @ 15:07 by Jeanette Chery RN) Other No significant family history Social History (Updated 05/30/23 @ 15:07 by Jeanette Chery RN) Smoking Status: Former smoker alcohol intake: current substance use type: denies use current occupational status: employed [employer]
[2023-05-30 15:18] LABS: Basophils % 0.2 % (0.1-2.0); Chloride 94 mmol/L (98-107); Eosinophils # 0.1 K/mm3 (0.0-0.4); Eosinophils % 0.5 % (0.1-12.0); Hematocrit 26.8 % (37.0-47.0); Hemoglobin 8.2 g/dL (12.2-16.2); Lymphocytes % 7.5 % (10-50); Mean Corpuscular HGB Conc 30.6 g/dL (31.8-35.4); Mean Corpuscular Hemoglobin 20.4 pg (27.0-31.2); Mean Corpuscular Volume 66.8 fl (81-99); Mean Platelet Volume 7.6 fl (7.4-10.4); Monocytes # 0.8 K/mm3 (0.1-1.0); Neutrophils # 11.3 K/mm3 (1.8-7.8); Neutrophils % 85.7 % (37.0-80.0); Platelet Count 621 K/mm3 (142-424); Red Blood Count 4.02 M/mm3 (4.20-5.40); Red Cell Distribution Width 17.7 % (11.5-17.5); Sodium 129 mmol/L (136-145); White Blood Count 13.2 K/mm3 (4.8-10.8)
[2023-05-30 15:20] LABS: Alanine Aminotransferase 94 U/L (12-78); Aspartate Amino Transferase 370 U/L (14-36); Blood Urea Nitrogen 14 mg/dl (7-17); Creatinine Clearance Estimated 58 mL/min (50-200); Estimated Glomerular Filt Rate 123 ml/min (>60); GFR (African American) 149 ML/MIN (>60); MANUAL DIFFERENTIAL MANUAL DIFFERENTIAL (MANUAL DIFF)
[2023-05-30 15:21] LABS: Albumin Level 3.2 g/dl (3.5-5.0); Albumin/Globulin Ratio 0.8 (1.1-1.8); Alkaline Phosphatase 223 U/L (38-126); Anion Gap 12.9 mEq/L (5-15); Bilirubin,Total 0.7 mg/dl (0.2-1.3); Calcium 8.2 mg/dl (8.4-10.2); Carbon Dioxide 25 mmol/L (22.0-30.0); Globulin 3.8 g/dL (1.3-3.2); Glucose 168 mg/dl (74-100); Lipase 20 U/L (23-300)
[2023-05-30 15:23] LABS: Potassium 2.9 mmoL/L (3.5-5.1)
--- NOTE | 2023-05-30 15:23 | PC.NURSE ---
critical potassium level reported to ER
--- NOTE | 2023-05-30 15:30 | PC.NURSE ---
ROUNDED ON PT, REPORTS PAIN HAS IMPROVED. NO NEEDS AT THIS TIME. FAMILY AT BEDSIDE. CALL LIGHT WITHIN REACH
[2023-05-30 15:33] LABS: Lymphocytes % 7 % (10-50); Monocytes % 2 % (2-9); Neutrophils % 90 % (42-76); Nucleated Red Blood Cells 1; Platelet Estimate Marked Increase; Total Cells Counted 100
[2023-05-30 15:35] LABS: Hypochromasia 2+
--- NOTE | 2023-05-30 15:39 | PC.NURSE ---
DR JACKSON AT BEDSIDE TO UPDATE PT AND FAMILY ON POC
[2023-05-30 15:55] VITALS: BP 128/67; PULSE 70; RESP 17; TEMP 36.9; O2SAT 95
== END 2023-05-30 15:55 | disposition home or self-care (01) ==
PROVIDERS: Emergency Provider Emergency Medicine; PCP Family Medicine
DX: R10.10 Upper abdominal pain, unspecified (principal); E87.6 Hypokalemia; C80.1 Malignant (primary) neoplasm, unspecified; E11.65 Type 2 diabetes mellitus with hyperglycemia; I10 Essential (primary) hypertension; E05.90 Thyrotoxicosis, unspecified without thyrotoxic crisis or storm; F41.9 Anxiety disorder, unspecified; F32.A Depression, unspecified; R74.01 Elevation of levels of liver transaminase levels; Z79.84 Long term (current) use of oral hypoglycemic drugs
CPT/HCPCS: 36415; 80053; 83690; 85007; 85025; 96372; 99284; 99285

== ENCOUNTER 2023-06-25 04:55 | Inpatient (IN) | payer MEDICARE, OTHER, SELFPAY ==
[2023-06-25] VITALS (26 sets, daily range): BP systolic 98–140; BP diastolic 40–82; PULSE 64–99; RESP 12–24; TEMP 36.4–36.7; O2SAT 95–100; BMI 28.1; BMI 27.1
--- NOTE | 2023-06-25 05:02 | PC.NURSE ---
Dr. Ramirez at
--- NOTE | 2023-06-25 05:27 | HMH.EDGENADL ---
Discharge Plan Disposition Patient Disposition: Admitted Prescriptions Prescriptions: No Action glipizide 10 MG tablet 5 mg PO BID levothyroxine 100 MCG tablet 100 mcg PO DAILY amlodipine 10 MG tablet 5 mg PO DAILY benazepril 40 MG tablet 40 mg PO DAILY hydrochlorothiazide 12.5 MG tablet 25 mg PO DAILY hydrocodone-acetaminophen 5-325 mg tablet 1 tab PO Q8H PRN (Reason: pain) Qty: 20 0RF furosemide 20 mg tablet 20 mg PO NEEDED PRN (Reason: .) benazepril 40 mg tablet 40 mg PO DAILY Patient Comments: TAKE 1 TABLET BY MOUTH ONCE DAILY pioglitazone 30 mg tablet 30 mg PO DAILY Patient Comments: TAKE 1 TABLET BY MOUTH DAILY oxycodone 5 mg tablet 5 mg PO NEEDED PRN (Reason: Pain) Patient Comments: TAKE 1 TABLET BY MOUTH EVERY 6 HOURS NEEDED FOR SEVERE PAIN Vitron-C 65 mg iron- 125 mg tablet,delayed release (DR/EC) 1 tab PO DAILY Patient Comments: CHEW AND SWALLOW 1 TABLET BY MOUTH ONCE DAILY Referrals Follow up/Referrals: Eneida Cavazos [Primary Care Provider] - See instructions Clinical Impressions Clinical Impression: Cholangiocarcinoma, AVI (acute kidney injury), Acute hyponatremia, Ascites, malignant, Portal vein thrombosis, SBP (spontaneous bacterial peritonitis) Discharge ED Provider: Liliana Vences General Adult HPI <Theodore Ramirez MD - Last Filed: 06/25/23 07:01> General Chief complaint: Weakness Stated complaint: weakness, can't eat Time Seen by Provider: 06/25/23 05:01 Mode of Arrival: Wheelchair Source of Information: Patient Limitations: No Limitations Description of Symptoms (Recalled from ER Triage Doc. by RN): pt c/o abd pain with bloating, weakness, unable to eat. pt was diagnosed with billary duct cancer with liver mets. History of Present Illness HPI narrative: 67-year-old female history of recently diagnosed cholangiocarcinoma presents with several days of decreased p.o. intake, generalized weakness. No reported fevers. Patient reports worsening abdominal distention and lower extremity edema. Patient is a patient at [facility] and is slated to begin chemotherapy in the next couple of weeks. Related Data Home Medications Medication Instructions Recorded Confirmed amlodipine 10 mg tablet 5 mg PO DAILY High blood pressure 11/26/20 06/25/23 benazepril 40 mg tablet 40 mg PO DAILY High blood pressure 11/26/20 06/25/23 glipizide 10 mg tablet 5 mg PO BID Diabetes 11/26/20 06/25/23 hydrochlorothiazide 12.5 mg tablet 25 mg PO DAILY High blood pressure 11/26/20 06/25/23 levothyroxine 100 mcg tablet 100 mcg PO DAILY hormone 11/26/20 06/25/23 replacement benazepril 40 mg tablet 40 mg PO DAILY . 06/25/23 06/25/23 furosemide 20 mg tablet 20 mg PO NEEDED PRN . 06/25/23 06/25/23 iron,carbonyl 65 mg-vitamin C 125 1 tab PO DAILY . 06/25/23 06/25/23 mg tablet,delayed release (Vitron-C) oxycodone 5 mg tablet 5 mg PO NEEDED PRN Pain 06/25/23 06/25/23 pioglitazone 30 mg tablet 30 mg PO DAILY . 06/25/23 06/25/23 Previous Rx's Medication Instructions Recorded hydrocodone 5 mg-acetaminophen 325 1 tab PO Q8H PRN pain #20 tabs 05/30/23 mg tablet Allergies Allergy/AdvReac Type Severity Reaction Status Date / Time codeine Allergy Verified 06/25/23 05:22 [facility] <Theodore Ramirez MD - Last Filed: 06/25/23 07:01> [facility] Disclaimer: The information contained in this section may have been updated after the patient was seen, as this information can be updated by other users. Medical History (Updated 06/25/23 @ 09:28 by Liliana Vences DO) Anxiety and depression Cancer Diabetes Hypertension Hyperthyroidism Family History (Updated 05/30/23 @ 15:07 by Jeanette Chery RN) Other No significant family history Social History Smoking Status: Former smoker alcohol intake: current substance use type: denies use cur
--- NOTE | 2023-06-25 05:45 | PC.NURSE ---
Dr. Ramirez and RN at
[2023-06-25 05:50] LABS: Basophils # 0.1 K/mm3 (0-0.2); Basophils % 0.2 % (0.1-2.0); Eosinophils # 0.3 K/mm3 (0.0-0.4); Hematocrit 31.3 % (37.0-47.0); Hemoglobin 9.3 g/dL (12.2-16.2); Lymphocytes # 0.6 K/mm3 (0.7-4.5); Lymphocytes % 2.4 % (10-50); Mean Corpuscular HGB Conc 29.6 g/dL (31.8-35.4); Mean Corpuscular Hemoglobin 18.8 pg (27.0-31.2); Mean Corpuscular Volume 63.3 fl (81-99); Mean Platelet Volume 8.6 fl (7.4-10.4); Monocytes # 0.8 K/mm3 (0.1-1.0); Neutrophils # 24.1 K/mm3 (1.8-7.8); Neutrophils % 93.4 % (37.0-80.0); Platelet Count 408 K/mm3 (142-424); Red Blood Count 4.94 M/mm3 (4.20-5.40); Red Cell Distribution Width 19.5 % (11.5-17.5); White Blood Count 25.8 K/mm3 (4.8-10.8)
[2023-06-25 05:54] LABS: MANUAL DIFFERENTIAL MANUAL DIFFERENTIAL (MANUAL DIFF)
[2023-06-25 06:03] LABS: Alanine Aminotransferase 225 U/L (12-78); Albumin/Globulin Ratio 0.9 (1.1-1.8); Alkaline Phosphatase 407 U/L (38-126); Anion Gap 17.9 mEq/L (5-15); Bilirubin,Total 1.1 mg/dl (0.2-1.3); Blood Urea Nitrogen 45 mg/dl (7-17); Calcium 8.3 mg/dl (8.4-10.2); Carbon Dioxide 19 mmol/L (22.0-30.0); Chloride 92 mmol/L (98-107); Creatinine Clearance Estimated 55 mL/min (50-200); Estimated Glomerular Filt Rate 50 ml/min (>60); GFR (African American) 60 ML/MIN (>60); Globulin 3.4 g/dL (1.3-3.2); Glucose 177 mg/dl (74-100); Magnesium 1.9 mg/dl (1.6-2.3); Potassium 3.9 mmoL/L (3.5-5.1); Sodium 125 mmol/L (136-145); Total Protein,Serum 6.4 g/dl (6.3-8.2)
[2023-06-25 06:12] LABS: Aspartate Amino Transferase 1102 U/L (14-36)
[2023-06-25 06:15] LABS: Appearance,Body Fld. Cloudy; Source, Body Fld. Paracentesis Fluid
[2023-06-25 06:16] LABS: Volume,Body Fld. 4 mL
[2023-06-25 06:21] LABS: T4 (Thyroxine) 9.8 ug/dl (5.53-11.0)
--- NOTE | 2023-06-25 06:46 | CT_ITS ---
FINAL REPORT TECHNIQUE: After the administration of oral and intravenous contrast, axial images were obtained through the abdomen and pelvis by computed tomography. The study was performed with techniques to keep radiation dose as low as reasonably achievable, (ALARA). Individual dose reduction techniques using automated exposure control or adjustment of mA and/or kV according to the patient's size were employed. CLINICAL HISTORY: cholangiocarcinoma, sepsis, decompensation COMPARISON: 03/25/2023 FINDINGS: Abdomen: Lung bases are clear. The gallbladder is distended. There has been marked progression of liver metastases. There is infiltrative tumor in the right liver measuring 4.2 x 3.7 cm, previously measured 2.1 x 2.1 cm. Number of liver lesions has progressed. There are filling defects within the distal left portal vein and main portal vein which may reflect tumor or thrombus or combination of both. Pneumobilia is probably due to biliary stent. The spleen, pancreas and adrenal glands are unremarkable. Kidneys show no mass or obstruction. There is a small amount of ascites. There is progressive adenopathy in the upper abdomen. No bowel obstruction or fluid collection is seen. Pelvis: The appendix is not visualized. Pelvic bowel loops are unremarkable. There is a small amount of ascites. The uterus and ovaries are unremarkable. IMPRESSION: Marked progressive liver metastases. New filling defects within the left and main pulmonary vein are likely reflective of a combination of tumor and thrombus. Small amount of ascites. Increased upper abdominal adenopathy, likely metastatic adenopathy. Reviewed, Interpreted and Dictated by Barbara Rueda MD Transcribed by Sumi Hickman Authenticated and [facility]
--- NOTE | 2023-06-25 06:52 | PC.NURSE ---
called to room to seepatient holding paracentesis tubing in her hand. Stated it came out when she reached down. cleaned site, placed gauze and tegaderm to site. md aware. small bm noted to bedpan. family updated on status
--- NOTE | 2023-06-25 07:15 | PC.NURSE ---
pt to scan via stretcher
--- NOTE | 2023-06-25 07:16 | PC.NURSE ---
Spoke with Rosaura in lab and she reports they successfully got both blood cultures
[2023-06-25 07:34] LABS: Lymphocytes % 2 % (10-50); Monocytes % 3 % (2-9); Neutrophils % 95 % (42-76); Total Cells Counted 100
[2023-06-25 07:35] LABS: Hypochromasia 2+
[2023-06-25 07:36] LABS: Anisocytosis 2+; Microcytosis 2+; Poikilocytosis 2+; Target Cells 2+
[2023-06-25 07:38] LABS: Ovalocytes 1+
[2023-06-25 07:39] LABS: Schistocytes 1+
[2023-06-25 07:44] LABS: Burr Cells 1+
[2023-06-25 07:45] LABS: Platelet Estimate Slight Increase
[2023-06-25 07:47] LABS: TNC,Body Fluid 1004 cells/uL (< 1000)
[2023-06-25 07:48] LABS: RBC,Body Fluid < 10 cells/uL (< 10 X 10^3)
[2023-06-25 07:51] LABS: Microscopic, Urine URINE MICROSCOPIC (MICROSCOPIC)
[2023-06-25 07:52] LABS: Appearance,Urine CLEAR (Clear); Blood, Urine Negative (Negative); Color,Urine YELLOW (Yellow); Glucose,Urine (UA) Negative (Negative); Ketones,Urine Negative (Negative); Leukocyte Esterase,Urine Negative (Negative); Nitrate,Urine Negative (Negative); Protein,Urine TRACE (Negative); Urobilinogen,Urine 0.2 EU/dl (0.2)
--- NOTE | 2023-06-25 07:52 | PC.NURSE ---
pt ambulated to bathroom with assistance. repositioned in bed. urine sample sent to lab. pts family at bedside.
[2023-06-25 07:59] LABS: Bilirubin,Urine 1+ (Negative)
[2023-06-25 08:01] LABS: INR 4.86 (0.9-1.1)
[2023-06-25 08:05] LABS: Squamous Epithelial Cell,Urine Occasional #/hpf (0-5)
[2023-06-25 08:08] LABS: Prothrombin Time 47.3 seconds (9.2-12.1)
--- NOTE | 2023-06-25 08:08 | PC.NURSE ---
notified of critical lab value; PT 47.3, INR 4.86.
--- NOTE | 2023-06-25 08:45 | PC.NURSE ---
Dr. Vences at BS for update on POC
--- NOTE | 2023-06-25 08:50 | PC.NURSE ---
Radiology notified to [facility] images and burn disc
[2023-06-25 08:51] LABS: Mononuclear WBCs,Body Fluid 11 %; Polynuclear WBC,Body Fluid 89 %
--- NOTE | 2023-06-25 08:52 | PC.NURSE ---
Contacting [facility] for possible transfer
--- NOTE | 2023-06-25 09:19 | PC.NURSE ---
Imaging disc received from Radiology
--- NOTE | 2023-06-25 09:29 | PC.NURSE ---
Dr. Vences speaking with [facility] at this time
--- NOTE | 2023-06-25 10:38 | PC.NURSE ---
speaking with . Attempting to call [facility] about transfer
--- NOTE | 2023-06-25 10:46 | PC.NURSE ---
Contacted [facility] for ER MD. currently has patient on a wait list
--- NOTE | 2023-06-25 10:50 | PC.NURSE ---
helped pt get settled in the bed, call light at bs
--- NOTE | 2023-06-25 11:29 | PC.NURSE ---
SPEAKING WITH FROM [facility]
--- NOTE | 2023-06-25 11:56 | PC.NURSE ---
on phone with [facility]
--- NOTE | 2023-06-25 11:58 | PC.NURSE ---
[facility] did not accept transfer.
--- NOTE | 2023-06-25 12:01 | PC.NURSE ---
PT SLEEPING IN BED NOTHING NEEDED AT THIS TIME,CALL LIGHT AT BS
--- NOTE | 2023-06-25 12:17 | PC.NURSE ---
Spoke with Donna in care management regarding pt admission
--- NOTE | 2023-06-25 12:33 | PC.NURSE ---
Food approved by . Dietary called with request of low sodium meal.
[2023-06-25 12:49] LABS: Chloride 92 mmol/L (98-107); Potassium 3.8 mmoL/L (3.5-5.1); Sodium 124 mmol/L (136-145)
[2023-06-25 12:52] LABS: Alanine Aminotransferase 200 U/L (12-78); Albumin Level 2.5 g/dl (3.5-5.0); Albumin/Globulin Ratio 0.8 (1.1-1.8); Alkaline Phosphatase 352 U/L (38-126); Ammonia < 9 umol/L (9-30); Anion Gap 15.8 mEq/L (5-15); Bilirubin,Total 0.9 mg/dl (0.2-1.3); Blood Urea Nitrogen 48 mg/dl (7-17); Calcium 8.2 mg/dl (8.4-10.2); Carbon Dioxide 20 mmol/L (22.0-30.0); Creatinine Clearance Estimated 50 mL/min (50-200); Estimated Glomerular Filt Rate 45 ml/min (>60); GFR (African American) 54 ML/MIN (>60); Globulin 3.1 g/dL (1.3-3.2); Glucose 192 mg/dl (74-100); Total Protein,Serum 5.6 g/dl (6.3-8.2)
--- NOTE | 2023-06-25 12:58 | PC.NURSE ---
report called to zahraa on second floor
[2023-06-25 13:02] LABS: Hemoglobin A1C 7.4 % (4.0-6.0)
[2023-06-25 13:03] LABS: Aspartate Amino Transferase 875 U/L (14-36)
--- NOTE | 2023-06-25 13:10 | PC.NURSE ---
call made to pts daughter for update on POC.
--- NOTE | 2023-06-25 13:58 | HMH.PHAINT1 ---
Pharmacy Intervention Comments: Patients home medications reviewed and verified with external pharmacy. -Devang Drake, Pharm Student
[2023-06-25 16:23] LABS: POC Glucose,Bedside 207 (70-110)
--- NOTE | 2023-06-25 16:34 | EXP.HP ---
History of Present Illness *Admission Date: 06/25/23 *Reason for visit:: Abdominal pain and tension *History of present illness: Ms. Lee is a 67-year-old female who complains of abdominal pain and bloating worse over the past week. Has developed weakness and inability to eat. Pain has gotten worse in her abdomen, most prominent with movement. Presents with rebound tenderness. Of note was diagnosed with metastatic cholangiocarcinoma, primary biliary duct source earlier this week. Has established with [facility] and was slated to begin chemotherapy next week. On arrival to the ER she was found to be afebrile. Diagnostic paracentesis performed concerning for spontaneous bacterial peritonitis. Is also noted increased abdominal distention and swelling in her legs. Denies nausea but no maría emesis. Having diarrhea, but no blood in her stool. ER consulted medicine for admission after attempts to transfer patient. On arrival to the floor, patient appears ill but not toxic. On room air. Positive rebound on abdominal exam. Attempts made to transfer patient to both and [facility]. [facility] declined patient, patient is on wait list for . She is established with [facility], would like to go there for continuity of care. [facility] Disclaimer: The information contained in this section may have been updated after the patient was seen, as this information can be updated by other users. Medical History (Updated 06/25/23 @ 16:47 by Luis Antonio Main MD) Anxiety and depression Cancer Diabetes Hypertension Hyperthyroidism Family History No significant family history Social History Smoking Status: Former smoker alcohol intake: current substance use type: denies use current occupational status: employed Travel in the last 8 weeks: None household members: none housing: house current occupation: manufactor shipping caffeine: Yes Review of Systems Review of Systems Review of systems (narrative): 14 point review of systems performed, pertinent positives and negatives as per HPI Meds Home Medications and Allergies Home Medications Medication Instructions Recorded Confirmed Type benazepril 40 mg tablet 40 mg PO DAILY Blood Pressure 11/26/20 06/25/23 History glipizide 10 mg tablet 5 mg PO BID Diabetes 11/26/20 06/25/23 History amlodipine 5 mg tablet 5 mg PO DAILY Blood Pressure 06/25/23 06/25/23 History citalopram 20 mg tablet 20 mg PO DAILY Mood 06/25/23 06/25/23 History furosemide 20 mg tablet 20 mg PO DAILY Fluid 06/25/23 06/25/23 History hydrochlorothiazide 25 mg tablet 25 mg PO DAILY Blood Pressure 06/25/23 06/25/23 History iron,carbonyl 65 mg-vitamin C 125 1 tab PO DAILY Supplement 06/25/23 06/25/23 History mg tablet,delayed release (Vitron-C) levothyroxine 112 mcg tablet 112 mcg PO DAILY Thyroid 06/25/23 06/25/23 History oxycodone 5 mg tablet 5 mg PO Q6H PRN Pain 06/25/23 06/25/23 History pioglitazone 30 mg tablet 30 mg PO DAILY Diabetes 06/25/23 06/25/23 History prochlorperazine maleate 10 mg 10 mg PO TID PRN Nausea 06/25/23 06/25/23 History tablet New Prescriptions to Start Prescriptions: Allergies Allergy/AdvReac Type Severity Reaction Status Date / Time codeine Allergy Verified 06/25/23 05:22 Exam Data for Last 24 hours Vital signs and Labs for Last 24 Hours: Temp Pulse Resp BP Pulse Ox O2 Del Method O2 Flow Rate 98.0 F 77 18 119/59 L 100 Room Air 97 06/25/23 16:00 06/25/23 16:00 06/25/23 16:00 06/25/23 16:00 06/25/23 16:00 06/25/23 16:00 06/25/23 13:58 Laboratory Results - last 24 hr 06/25/23 05:30: WBC 25.8 H*, RBC 4.94, Hgb 9.3 L, Hct 31.3 L, MCV 63.3 L, MCH 18.8 L, MCHC 29.6 L, RDW 19.5 H, Plt Count 408, MPV 8.6, Neut % (Auto) 93.4 H, Lymph % (Auto) 2.4 L, [place] % (Auto) 3.0, Eos % (Auto) 1.0, Baso % (Auto) 0.2, N
--- NOTE | 2023-06-25 18:37 | PC.NURSE ---
HOME MEDS NOT NEEDED AT THIS TIME. HOME MEDS SENT WITH FAMILY
[2023-06-25 20:45] LABS: POC Glucose,Bedside 170 (70-110)
[2023-06-26] VITALS: BP 127/67; PULSE 83; RESP 17; TEMP 37; O2SAT 96
[2023-06-26 04:00] VITALS: BP 111/58; PULSE 82; RESP 16; TEMP 36.6; O2SAT 94; BMI 27.2
--- NOTE | 2023-06-26 05:16 | PC.NURSE ---
PATIENT RECEIVED SHOWER THIS AM PER HER REQUEST. HAS BEEN MEDICATED TWICE THIS SHIFT WITH MORPHINE 2 MG IVP FOR OAIN 04/08. ABDOMENT DISTENDED BUT SOFT. HYPOACTIVE BSs X 4. DRSG C/D/I TO LEFT ABDOMEN.
--- NOTE | 2023-06-26 05:31 | PC.NURSE ---
LAB REPORTS + BLD CULTURES9 GM+ COCCI IN PAIRS AND GM NEG RODS, ALSO ENTEROCOACUS FAECALIS, ENTEROBACTERALES, AND KLEBSIELOA OXYTEOCA. EMILIA Dickerson.Francisca. NOTIFIED.
[2023-06-26 05:46] LABS: POC Glucose,Bedside 163 (70-110)
[2023-06-26 06:29] LABS: Basophils # 0.1 K/mm3 (0-0.2); Basophils % 0.3 % (0.1-2.0); Eosinophils # 0.1 K/mm3 (0.0-0.4); Eosinophils % 0.4 % (0.1-12.0); Hemoglobin 8.8 g/dL (12.2-16.2); Lymphocytes # 0.8 K/mm3 (0.7-4.5); Lymphocytes % 3.8 % (10-50); Mean Corpuscular HGB Conc 30.3 g/dL (31.8-35.4); Mean Corpuscular Volume 62.5 fl (81-99); Mean Platelet Volume 8.7 fl (7.4-10.4); Monocytes # 0.8 K/mm3 (0.1-1.0); Monocytes % 3.9 % (1.7-9.3); Neutrophils # 19.1 K/mm3 (1.8-7.8); Neutrophils % 91.6 % (37.0-80.0); Platelet Count 337 K/mm3 (142-424); Red Blood Count 4.63 M/mm3 (4.20-5.40); Red Cell Distribution Width 19.1 % (11.5-17.5); White Blood Count 20.8 K/mm3 (4.8-10.8)
[2023-06-26 06:31] LABS: MANUAL DIFFERENTIAL MANUAL DIFFERENTIAL (MANUAL DIFF)
[2023-06-26 06:36] LABS: INR 1.69 (0.9-1.1); Prothrombin Time 17.6 seconds (10.1-12.5)
[2023-06-26 06:38] LABS: Alanine Aminotransferase 193 U/L (12-78); Albumin Level 2.5 g/dl (3.5-5.0); Albumin/Globulin Ratio 0.8 (1.1-1.8); Alkaline Phosphatase 323 U/L (38-126); Anion Gap 17.5 mEq/L (5-15); Bilirubin,Total 0.8 mg/dl (0.2-1.3); Blood Urea Nitrogen 56 mg/dl (7-17); Calcium 7.6 mg/dl (8.4-10.2); Carbon Dioxide 18 mmol/L (22.0-30.0); Chloride 94 mmol/L (98-107); Creatinine Clearance Estimated 39 mL/min (50-200); Estimated Glomerular Filt Rate 35 ml/min (>60); GFR (African American) 42 ML/MIN (>60); Globulin 3.1 g/dL (1.3-3.2); Glucose 142 mg/dl (74-100); Magnesium 1.9 mg/dl (1.6-2.3); Potassium 3.5 mmoL/L (3.5-5.1); Sodium 126 mmol/L (136-145); Total Protein,Serum 5.6 g/dl (6.3-8.2)
[2023-06-26 06:44] LABS: Aspartate Amino Transferase 737 U/L (14-36)
[2023-06-26 07:56] LABS: Hypochromasia 2+; Lymphocytes % 6 % (10-50); Monocytes % 1 % (2-9); Neutrophils % 93 % (42-76); Platelet Estimate Normal; Total Cells Counted 100
[2023-06-26 08:00] VITALS: BP 100/61; PULSE 101; RESP 20; TEMP 36.6; O2SAT 96
--- NOTE | 2023-06-26 08:02 | EXP.ACUTE.PN ---
Subjective *Date: 06/26/23 *Time: 11:12 Interval history: Patient remained afebrile overnight. Blood cultures returned positive for 3 different pathogens (Klebsiella, E faecalis, Enterobacter.) Tolerating p.o. intake. Having urine output, unmeasured at this time. No nausea or vomiting. Pain stable in abdomen. Medical Exam Vital signs and Labs for Last 24 Hours: Vital Signs Temp Pulse Pulse Resp BP BP Pulse Ox 06/26/23 06:38 06/26/23 05:00 06/26/23 04:00 98 F 82 16 111/58 L 94 L 06/26/23 03:00 06/26/23 01:00 06/26/23 00:00 98.6 F 83 17 127/67 96 06/25/23 23:00 06/25/23 21:00 06/25/23 20:00 96 06/25/23 20:00 97.7 F 76 17 139/72 96 06/25/23 18:22 06/25/23 16:00 98.0 F 77 18 119/59 L 100 06/25/23 13:58 06/25/23 13:54 06/25/23 13:31 97.9 F 99 H 18 116/61 99 06/25/23 13:24 97.9 F 80 21 122/73 06/25/23 13:00 80 122/73 98 06/25/23 12:30 83 115/59 L 98 06/25/23 12:00 21 117/62 06/25/23 11:30 83 121/61 97 06/25/23 11:00 76 114/62 98 06/25/23 09:30 70 113/46 L 97 06/25/23 09:25 72 14 117/50 L 97 06/25/23 09:05 78 17 116/53 L 98 06/25/23 08:30 68 17 98/43 L 95 06/25/23 08:05 66 24 106/46 L 96 O2 Del Method O2 Flow Rate 06/26/23 06:38 Room Air 06/26/23 05:00 Room Air 06/26/23 04:00 06/26/23 03:00 Room Air 06/26/23 01:00 Room Air 06/26/23 00:00 06/25/23 23:00 Room Air 06/25/23 21:00 Room Air 06/25/23 20:00 Room Air 06/25/23 20:00 Room Air 06/25/23 18:22 Room Air 06/25/23 16:00 Room Air 06/25/23 13:58 Room Air 97 06/25/23 13:54 Room Air 06/25/23 13:31 Room Air 06/25/23 13:24 06/25/23 13:00 Room Air 06/25/23 12:30 Room Air 06/25/23 12:00 06/25/23 11:30 Room Air 06/25/23 11:00 Room Air 06/25/23 09:30 Room Air 06/25/23 09:25 06/25/23 09:05 06/25/23 08:30 06/25/23 08:05 Intake and Output 06/25/23 06/26/23 06/26/23 23:59 07:59 15:59 Intake Total 120 / 360 240 / 240 Balance 120 / -1040 240 / 240 Intake: Intake, Oral Amount 120 / 360 240 / 240 Other: Weight 67.222 kg Patient Weight 06/26/23 23:59 Weight 67.222 kg Laboratory Results - last 24 hr 06/25/23 05:30: Hemoglobin A1c 7.4 H 06/25/23 05:49: Fld Polynuclear WBCs % 89, Fld Mononuclear WBCs % 11 06/25/23 06:20: PT 47.3 H, INR 4.86 H 06/25/23 07:41: Urine RBC None, Urine WBC 3-5, Ur Squamous Epith Cells Occasional, Urine Bacteria None 06/25/23 12:30: Sodium 124 L, Potassium 3.8, Chloride 92 L, Carbon Dioxide 20 L, Anion Gap 15.8 H, BUN 48 H, Creatinine 1.20 H, Estimated Creat Clear 50, Estimated GFR 45 L, Est GFR ( Amer) 54 L, Glucose 192 H, Calcium 8.2 L, Total Bilirubin 0.9, AST 875 H*, ALT 200 H, Alkaline Phosphatase 352 H, Ammonia < 9 L, Total Protein 5.6 L, Albumin 2.5 L D, Globulin 3.1, Albumin/Globulin Ratio 0.8 L 06/25/23 16:16: POC Glucose 207 H 06/25/23 20:37: POC Glucose 170 H 06/26/23 05:38: POC Glucose 163 H 06/26/23 05:50: WBC 20.8 H*, RBC 4.63, Hgb 8.8 L, Hct 29.0 L, MCV 62.5 L, MCH 19.0 L, MCHC 30.3 L, RDW 19.1 H, Plt Count 337, MPV 8.7, Neut % (Auto) 91.6 H, Lymph % (Auto) 3.8 L, [place] % (Auto) 3.9, Eos % (Auto) 0.4, Baso % (Auto) 0.3, Neut # (Auto) 19.1 H, Lymph # (Auto) 0.8, [place] # (Auto) 0.8, Eos # (Auto) 0.1, Baso # (Auto) 0.1, Total Counted 100, Neutrophils % (Manual) 93 H, Lymphocytes % (Manual) 6 L, Monocytes % (Manual) 1 L, Platelet Estimate Normal, Hypochromasia 2+, PT 17.6 H, INR 1.69 H, Sodium 126 L, Potassium 3.5, Chloride 94 L, Carbon Dioxide 18 L, Anion Gap 17.5 H, BUN 56 H, Creatinine 1.50 H D, Estimated Creat Clear 39, Estimated GFR 35 L, Est GFR ( Amer) 42 L D, Glucose 142 H D, Calcium 7.6 L, Magnesium 1.9, Total Bilirubin 0.8, AST 737 H*, ALT 193 H, Alkaline Phosphatase 323 H, Total Protein 5.6 L, Albumin 2.5 L, Globulin 3.1, Albumin/Globulin Rat
--- NOTE | 2023-06-26 08:09 | EXP.PHA.CONS ---
Pharmacy Consult Date: 06/26/23 Time: 08:09 Referring provider: DR. PATEL Reason for Consult:: VANCOMYCIN DOSING Allergies Allergy/AdvReac Type Severity Reaction Status Date / Time codeine Allergy Verified 06/25/23 05:22 Home Medications Medication Instructions Recorded Confirmed Type benazepril 40 mg tablet 40 mg PO DAILY Blood Pressure 11/26/20 06/25/23 History glipizide 10 mg tablet 5 mg PO BID Diabetes 11/26/20 06/25/23 History amlodipine 5 mg tablet 5 mg PO DAILY Blood Pressure 06/25/23 06/25/23 History citalopram 20 mg tablet 20 mg PO DAILY Mood 06/25/23 06/25/23 History furosemide 20 mg tablet 20 mg PO DAILY Fluid 06/25/23 06/25/23 History hydrochlorothiazide 25 mg tablet 25 mg PO DAILY Blood Pressure 06/25/23 06/25/23 History iron,carbonyl 65 mg-vitamin C 125 1 tab PO DAILY Supplement 06/25/23 06/25/23 History mg tablet,delayed release (Vitron-C) levothyroxine 112 mcg tablet 112 mcg PO DAILY Thyroid 06/25/23 06/25/23 History oxycodone 5 mg tablet 5 mg PO Q6H PRN Pain 06/25/23 06/25/23 History pioglitazone 30 mg tablet 30 mg PO DAILY Diabetes 06/25/23 06/25/23 History prochlorperazine maleate 10 mg 10 mg PO TID PRN Nausea 06/25/23 06/25/23 History tablet New Prescriptions to Start Prescriptions: Height: 1.57 m Weight: 67.222 kg Laboratory Results:: Laboratory Results - last 24 hr 06/25/23 05:30: Hemoglobin A1c 7.4 H 06/25/23 05:49: Fld Polynuclear WBCs % 89, Fld Mononuclear WBCs % 11 06/25/23 06:20: PT 47.3 H 06/25/23 12:30: Sodium 124 L, Potassium 3.8, Chloride 92 L, Carbon Dioxide 20 L, Anion Gap 15.8 H, BUN 48 H, Creatinine 1.20 H, Estimated Creat Clear 50, Estimated GFR 45 L, Est GFR ( Amer) 54 L, Glucose 192 H, Calcium 8.2 L, Total Bilirubin 0.9, AST 875 H*, ALT 200 H, Alkaline Phosphatase 352 H, Ammonia < 9 L, Total Protein 5.6 L, Albumin 2.5 L D, Globulin 3.1, Albumin/Globulin Ratio 0.8 L 06/25/23 16:16: POC Glucose 207 H 06/25/23 20:37: POC Glucose 170 H 06/26/23 05:38: POC Glucose 163 H 06/26/23 05:50: WBC 20.8 H*, RBC 4.63, Hgb 8.8 L, Hct 29.0 L, MCV 62.5 L, MCH 19.0 L, MCHC 30.3 L, RDW 19.1 H, Plt Count 337, MPV 8.7, Neut % (Auto) 91.6 H, Lymph % (Auto) 3.8 L, [place] % (Auto) 3.9, Eos % (Auto) 0.4, Baso % (Auto) 0.3, Neut # (Auto) 19.1 H, Lymph # (Auto) 0.8, [place] # (Auto) 0.8, Eos # (Auto) 0.1, Baso # (Auto) 0.1, Total Counted 100, Neutrophils % (Manual) 93 H, Lymphocytes % (Manual) 6 L, Monocytes % (Manual) 1 L, Platelet Estimate Normal, Hypochromasia 2+, PT 17.6 H, INR 1.69 H, Sodium 126 L, Potassium 3.5, Chloride 94 L, Carbon Dioxide 18 L, Anion Gap 17.5 H, BUN 56 H, Creatinine 1.50 H D, Estimated Creat Clear 39, Estimated GFR 35 L, Est GFR ( Amer) 42 L D, Glucose 142 H D, Calcium 7.6 L, Magnesium 1.9, Total Bilirubin 0.8, AST 737 H*, ALT 193 H, Alkaline Phosphatase 323 H, Total Protein 5.6 L, Albumin 2.5 L, Globulin 3.1, Albumin/Globulin Ratio 0.8 L Medical History: Medical History (Updated 06/25/23 @ 16:47 by Luis Antonio Patel MD) Anxiety and depression Cancer Diabetes Hypertension Hyperthyroidism Assessment and Plan Assessment and plan all Dx Assessment and Plan for all problems:: Pharmacokinetic dosing service Objective: Patient: Floor: Age: 67 yo Serum creatinine: 1.5 mg/dL Height: 61.8 Inches Weight (kg): 67.22 Assessment: IBW (kg): 49.64 Dosing wt(kg): 67.22 Estimated Creatinine clearance (ml/min): 28.5 CRCL method: Cockcroft and Gault using ibw(default). Drug selected: Vancomycin Loading dose (mg): 0 Vd (liters): 53.8 (factor used: 0.8 L/kg) Miguel A (hr-1): 0.028 Half life (hrs): 24.76 Recommended dose: 1250 mg Interval: 36 hrs Infusion time (hrs): 2.0 Predicted peak (mcg/mL): 35.6 Predicted trough (mcg/mL): 13.74 Total body weight is being used for vancomycin dosing. Recommendations: Give Vanco
--- NOTE | 2023-06-26 08:39 | PC.NURSE ---
Leaking iv removed.
--- NOTE | 2023-06-26 09:23 | PC.NURSE ---
SRNA NOTE: pt ambulated to and from bathroom x2 and ambulated 50ft in room. Alis SCHULTZ
[2023-06-26 10:14] LABS: POC Glucose,Bedside 158 (70-110)
[2023-06-26 11:20] VITALS: BMI 27.2
[2023-06-26 12:00] VITALS: BP 103/59; PULSE 90; RESP 20; TEMP 36.7; O2SAT 96
[2023-06-26 16:00] VITALS: BP 103/57; PULSE 80; RESP 22; TEMP 36.7; O2SAT 95
[2023-06-26 16:32] LABS: POC Glucose,Bedside 124 (70-110)
[2023-06-26 20:00] VITALS: BP 95/49; PULSE 92; RESP 18; TEMP 36.6; O2SAT 93
[2023-06-26 21:03] LABS: POC Glucose,Bedside 145 (70-110)
--- NOTE | 2023-06-26 21:25 | EXP.DC.SUM ---
General Admission date:: 06/25/23 Discharge date: 06/26/23 HPI HPI HPI: Ms. Lee is a 67-year-old female who complains of abdominal pain and bloating worse over the past week. Has developed weakness and inability to eat. Pain has gotten worse in her abdomen, most prominent with movement. Presents with rebound tenderness. Of note was diagnosed with metastatic cholangiocarcinoma, primary biliary duct source earlier this week. Has established with [facility] and was slated to begin chemotherapy next week. On arrival to the ER she was found to be afebrile. Diagnostic paracentesis performed concerning for spontaneous bacterial peritonitis. Is also noted increased abdominal distention and swelling in her legs. Denies nausea but no maría emesis. Having diarrhea, but no blood in her stool. ER consulted medicine for admission after attempts to transfer patient. On arrival to the floor, patient appears ill but not toxic. On room air. Positive rebound on abdominal exam. Attempts [facility] to transfer [facility] and [facility] . She is established with [facility], would like to go there for continuity of care. Hospital Course Hospital Course Hospital Course: Still awaiting cultures from blood and peritoneal fluid. PCR on blood showing multiple pathogens. Concern for SBP and bacteremic. Mild improvement leukocytosis to 20,000. Repeat CBC in the morning ordered. Antibiotics broadened to cefepime 2 g twice daily IV and vancomycin. Monitoring for toxicity. Liver enzymes remain elevated but seeing slight improvement, AST improved to 737, ALT 197, alkaline phosphatase 323. Improvement coagulopathy, INR down to 1.7. Responded well to vitamin K. No repeat vitamin K today. -Awaiting transfer to for further care by GI, surgery, oncology. Was supposed to start treatments next week for her cancer Rounded on patient after nurse practitioner. Personally examined and interviewed patient. Agree with exam findings and care plan as documented. Patient transferred for more definitive care. Exam Data for Last 24 hours Vital signs and Labs for Last 24 Hours: Temp Pulse Resp BP Pulse Ox O2 Del Method O2 Flow Rate 97.8 F 92 H 18 95/49 L 93 L Room Air 97 06/26/23 20:00 06/26/23 20:00 06/26/23 20:00 06/26/23 20:00 06/26/23 20:00 06/26/23 20:00 06/25/23 13:58 Laboratory Results - last 24 hr 06/26/23 05:38: POC Glucose 163 H 06/26/23 05:50: WBC 20.8 H*, RBC 4.63, Hgb 8.8 L, Hct 29.0 L, MCV 62.5 L, MCH 19.0 L, MCHC 30.3 L, RDW 19.1 H, Plt Count 337, MPV 8.7, Neut % (Auto) 91.6 H, Lymph % (Auto) 3.8 L, [place] % (Auto) 3.9, Eos % (Auto) 0.4, Baso % (Auto) 0.3, Neut # (Auto) 19.1 H, Lymph # (Auto) 0.8, [place] # (Auto) 0.8, Eos # (Auto) 0.1, Baso # (Auto) 0.1, Total Counted 100, Neutrophils % (Manual) 93 H, Lymphocytes % (Manual) 6 L, Monocytes % (Manual) 1 L, Platelet Estimate Normal, Hypochromasia 2+, PT 17.6 H, INR 1.69 H, Sodium 126 L, Potassium 3.5, Chloride 94 L, Carbon Dioxide 18 L, Anion Gap 17.5 H, BUN 56 H, Creatinine 1.50 H D, Estimated Creat Clear 39, Estimated GFR 35 L, Est GFR ( Amer) 42 L D, Glucose 142 H D, Calcium 7.6 L, Magnesium 1.9, Total Bilirubin 0.8, AST 737 H*, ALT 193 H, Alkaline Phosphatase 323 H, Total Protein 5.6 L, Albumin 2.5 L, Globulin 3.1, Albumin/Globulin Ratio 0.8 L 06/26/23 10:06: POC Glucose 158 H 06/26/23 16:22: POC Glucose 124 H 06/26/23 20:56: POC Glucose 145 H I & O for Last 24 hours: Intake & Output 06/23/23 06/24/23 06/25/23 06/26/23 23:59 23:59 23:59 23:59 Intake Total 120 / 360 1550 / 1550 Output Total 1400 / 1400 100 / 100 Balance -1280 / -1040 1450 / 1450 Weight 67.188 kg 67.222 kg Microbiology Reports for the Last 24 Hours: Microbiology 06/25/23 07:12 Blood Blood Culture - Preliminary 06/25/23 07:06 Blood Blood Culture - Preliminary Constitutional Constitutio
--- NOTE | 2023-06-26 22:28 | PC.NURSE ---
2142 STEPHANIE COPPOLA/DAUGHTER NOTIFIED OF PATIENTS PENDING TRANSFER TO THE [facility] VIA AMBULANCE.
--- NOTE | 2023-06-26 22:29 | PC.NURSE ---
2134 REPORT CALLED TO ISA AYOUB RN/[facility]. NOMI GUNN NP NOTIFIED.
--- NOTE | 2023-06-26 23:14 | PC.NURSE ---
PT LEFT FLOOR WITH EMS AT THIS TIME
--- NOTE | 2023-06-27 02:49 | PC.NURSE ---
Information given to [facility] regarding IV abx.
== END 2023-06-26 23:14 | disposition home or self-care (01) | DRG 371 ==
LOC: ER 12:15 → 2ND 06-26 00:07
PROVIDERS: Emergency Medicine; Admitting Provider Internal Medicine Adolescent Medicine; Emergency Provider Emergency Medicine; PCP Family Medicine; Visit Provider Internal Medicine Adolescent Medicine
DX: K65.2 Spontaneous bacterial peritonitis (principal); I81 Portal vein thrombosis; N17.9 Acute kidney failure, unspecified; E87.1 Hypo-osmolality and hyponatremia; R18.0 Malignant ascites; C22.1 Intrahepatic bile duct carcinoma; R78.81 Bacteremia; E03.1 Congenital hypothyroidism without goiter; K75.9 Inflammatory liver disease, unspecified; E11.9 Type 2 diabetes mellitus without complications; Z87.891 Personal history of nicotine dependence
CPT/HCPCS: 49082; 36415; 74177; 80053; 81001; 82140; 82962; 83036; 83735; 84436; 84443; 85007; 85025; 85610; 87040; 87070; 87077; 87186; 87205; 89051; 99291; J0696; J2405; Q9967